=== PATIENT | male | born 1960 | race Caucasian/White ===

== ENCOUNTER → 2018-02-19 | Outpatient (CLI) | payer MEDICARE ==
[~2018-02-19] MED LIST: ASPI-875 PO; CATHETER FLUSH 10 ML SYR IV PRN; GABA-488 PO; HYDR-3720 PO; IOHEXOL 350 MG/ML 100 ML (OMNIPAQUE 350) VIAL IV ONE; MTP25TSR PO; NS 250 ML (IVPB) BAG IV ONE; NTR.4SL SL; PRAV20TA PO
[2018-02-19 09:30] LABS: BUN/CREATININE RATIO 21; CREATININE SERUM 0.84 MG/DL (0.60-1.30); GFR ESTIMATED > 60
--- NOTE | 2018-02-19 10:34 | Diagnostic Imaging Report ---
PROCEDURE: CT chest with contrast only. TECHNIQUE: Multiple contiguous axial images were obtained through the chest after administration of intravenous contrast. INDICATION: Chest pain. Patient has history of lung collapse on the left one year ago. No prior studies are available for comparison. FINDINGS: No axillary lymphadenopathy is detected. No definite hilar or mediastinal adenopathy is seen. No pericardial or pleural fluid is detected. Significant bullous emphysematous changes are identified in the upper lobes. There appears to be postsurgical changes with suture in the left upper chest. There is also a hyperdense mass located immediately anterior to the ascending aorta and main pulmonary artery measuring 2.7 x 1.8 cm. This appears to be a calcification either arising from the pleura or perhaps mediastinum. This appears benign. No infiltrates are seen. No recurrent pneumothorax is identified. Upper abdomen is unremarkable. IMPRESSION: Bullous emphysematous changes and postsurgical changes in the left chest, as described. No recurrent pneumothorax is seen. No acute feature is identified. Dictated by: Dictated on workstation # [id number]
== END ==
LOC: RAD 08:50
PROVIDERS: ATTEND Surgery
DX: J43.9 Emphysema, unspecified (principal); Z98.890 Other specified postprocedural states; Z87.09 Personal history of other diseases of the respiratory system
CPT/HCPCS: 36415; 71260; 82565; 84520

== ENCOUNTER → 2018-10-14 | Outpatient (CLI) | payer MEDICARE ==
[~2018-10-14] MED LIST changes: +ASPIRIN 325 MG (5 GR) TABLET ONE; -CATHETER FLUSH 10 ML SYR IV PRN; +EPTIFIBATIDE BOLUS 10 ML IV ONE; +HEParin (CATH LAB) 2,000 ML IV ONE; +HEParin 1000 UNIT/ML (10ML VIAL) FOR BOLUS ONE; -IOHEXOL 350 MG/ML 100 ML (OMNIPAQUE 350) VIAL IV ONE; +LIDOCAINE 1% INJ 20 ML 20 ML VIAL ONE; +MIDAZOLAM 5 MG/5 ML (VERSED) VIAL ONE; +NITRO DRIP 25000 MCG/D5W 250 ML IV ONE; -NS 250 ML (IVPB) BAG IV ONE; +NS IV 1000 ML 0 ML ONE; +TICAGRELOR 90 MG TABLET (BRILINTA) PO ONE; +fentaNYL INJECTION 100 MCG/2 ML AMP ONE
[2018-10-14] MEDS: BARIUM SUSPENSION 60% (LIQUID EZ PAQUE) 240 ML DOSE PO ONE (08:54)
[2018-10-14] MEDS: BARIUM SUSPENSION 105% (LIQUID POLIBAR PLUS) 240 ML/DOSE PO ONE (08:54)
--- NOTE | 2018-10-14 10:19 | Diagnostic Imaging Report ---
INDICATION: Reflux and dysphasia. TECHNIQUE: Patient ingested effervescent crystals as well as thin and thick barium and imaging of the esophagus was performed. 1 minute and 45 seconds of fluoroscopy was utilized. FINDINGS: Preliminary radiograph demonstrates postsurgical changes in the left upper lobe. Post ingestion images demonstrate the esophagus to have a smooth contour. No mass or stricture is identified. No gastroesophageal reflux or hiatal hernia is demonstrated. There is prompt emptying into the stomach which is unremarkable. IMPRESSION: Unremarkable esophagram. Dictated by: Dictated on workstation # [id number]
== END ==
LOC: RAD 08:22
PROVIDERS: ATTEND Nurse Practitioner Family
DX: K21.9 Gastro-esophageal reflux disease without esophagitis (principal); R13.10 Dysphagia, unspecified
CPT/HCPCS: 74220

== ENCOUNTER 2018-11-01 06:12 | Outpatient (CLI) | payer MEDICARE ==
[~2018-11-01] VITALS: Ht 175.3 cm; Wt 52.2 kg
[~2018-11-01 06:12] MED LIST changes: -ASPIRIN 325 MG (5 GR) TABLET ONE; -EPTIFIBATIDE BOLUS 10 ML IV ONE; -HEParin (CATH LAB) 2,000 ML IV ONE; -HEParin 1000 UNIT/ML (10ML VIAL) FOR BOLUS ONE; -LIDOCAINE 1% INJ 20 ML 20 ML VIAL ONE; -MIDAZOLAM 5 MG/5 ML (VERSED) VIAL ONE; -NITRO DRIP 25000 MCG/D5W 250 ML IV ONE; -NS IV 1000 ML 0 ML ONE; -TICAGRELOR 90 MG TABLET (BRILINTA) PO ONE; -fentaNYL INJECTION 100 MCG/2 ML AMP ONE
[2018-11-01] MEDS ORDERED: AZIT500T PO (14:10)
[2018-11-01] MEDS ORDERED: ACHD5005 PO (14:10)
== END 2018-11-01 14:24 | disposition home or self-care (01) ==
LOC: PREOP 06:12
PROVIDERS: ATTEND Surgery
DX: Z01.818 Encounter for other preprocedural examination (principal)

== ENCOUNTER 2018-11-04 08:03 | Day surgery (SDC) | payer MEDICARE ==
[~2018-11-04] VITALS: Ht 175.3 cm; Wt 52.6 kg
[~2018-11-04 08:03] MED LIST changes: +ACHD5005 PO; +AZIT500T PO
[2018-11-04] MEDS ORDERED: BUP/EPI 0.5% 1:200,000 (SENSORCAINE) 30 ML VIAL ONE (08:11)
[2018-11-04 08:26] VITALS: BP 96/79
--- NOTE | 2018-11-04 08:29 | Progress Note-Pre Operative ---
Pre-Operative Progress Note H&P Reviewed The H&P was reviewed, patient examined and no changes noted. Date Seen by Provider: Nov 04, 2018 Time Seen by Provider: 08:20 Date H&P Reviewed: Nov 04, 2018 Time H&P Reviewed: 08:25 Pre-Operative Diagnosis: Symptomatic ventral abdominal incisional hernia, dysphagia GINNY LAN APRN Nov 04, 2018 08:29
[2018-11-04] MEDS ORDERED: HYDROcodone/APAP 5 MG/325 MG (LORTAB) TAB PO ONE (08:30)
[2018-11-04] MEDS ORDERED: ceFAZolin INJECTION 1,000 MG in NS (IVPB) 50 ML IV ONE (08:30)
[2018-11-04] MEDS ORDERED: morphine INJ 10 MG/ML 1ML (SYR OR VIAL) IVP PRN (08:30)
[2018-11-04] MEDS ORDERED: ACETAMINOPHEN 325 MG TABLET PO PRN (08:30)
[2018-11-04] MEDS ORDERED: ONDANSETRON 4 MG/2 ML (SDV) Z0FRAN IVP PRN ×2 (08:30→11:00)
[2018-11-04] MEDS ORDERED: HYDR-3816 PO ×2 (08:32)
--- NOTE | 2018-11-04 08:34 | Discharge Inst-Surgical ---
D/C Lap Instructions-KIDO New, Converted, or Re-Newed RX: RX on Chart Follow Up Appt in 2 weeks Activity as tolerated No driving for 24 hours No driving while on pain medications Incentive Spirometry use every 2 hours while awake Regular Diet Avoid Alcohol, Caffeine, Spicy, [place] and Acid foods. Symptoms to Report: Fever over 101 degree F, Nausea/Vomiting Infection Signs and Symptoms to report: Increased redness, Foul odor of wound, Increased drainage Bathing instructions: May shower Operative Area Clean/Dry; Keep incision clean/dry If any problems/questions: Contact your physician or go to Emergency Room GINNY LAN APRN Nov 04, 2018 08:34
[2018-11-04] MEDS ORDERED: FAMOTIDINE 20MG/2ML IV (PEPCID) ONE (08:41)
[2018-11-04] MEDS: LACTATED RINGERS 1,000 ML IV PRN ×2 (08:42→10:00)
[2018-11-04] MEDS ORDERED: proPOfol 200 MG/20 ML (DIPRIVAN) VIAL IV ONE ×2 (08:44→10:00)
[2018-11-04] MEDS ORDERED: ROCURONIUM 10 MG/ML 5 ML SYRINGE IV ONE (08:44)
[2018-11-04] MEDS ORDERED: ONDANSETRON 4 MG/2 ML (SDV) Z0FRAN ONE (08:44)
[2018-11-04] MEDS ORDERED: MIDAZOLAM 2 MG/2 ML (VERSED) VIAL ONE (08:44)
[2018-11-04] MEDS ORDERED: fentaNYL INJECTION 100 MCG/2 ML AMP ONE ×2 (08:44→10:26)
[2018-11-04] MEDS ORDERED: LIDOCAINE PF 2% 5 ML (XYLOCAINE) VIAL ONE (08:44)
[2018-11-04] MEDS ORDERED: DEXAMETHASONE 10 MG/ML (DECADRON) 1 ML VIAL ONE (08:50)
[2018-11-04] MEDS ORDERED: SEVOFLURANE (ULTANE) 15 ML INHAL SOLN ONE ×7 (08:50→10:59)
[2018-11-04] MEDS ORDERED: FAMOTIDINE 20MG/2ML IV (PEPCID) IVP ONE (09:00)
[2018-11-04] MEDS ORDERED: ESMOLOL 100 MG/10 ML (BREVIBLOC) VIAL ONE (09:47)
[2018-11-04] MEDS ORDERED: PHENYLEPHRINE 100 MCG/ML 10 ML (ANESTHESIA) SYR ONE (10:07)
--- NOTE | 2018-11-04 10:16 | Progress Note-Post Operative ---
Post-Operative Progess Note Surgeon (s)/Social Media Assistant (s) Surgeon AFSHIN KHAN MD Social Media Assistant: Alex Davey DIRECTOR OF MANUFACTURING Pre-Operative Diagnosis Symptomatic ventral abdominal incisional hernia, dysphagia Post-Operative Diagnosis Incisional hernia, Reflux esophagitis grade II, achalasia, mild gastritis, small hiatal hernia (1 cm) Procedure & Operative Findings Date of Procedure 11/04/18 Procedure Performed/Findings Open Incisional hernia repair with mesh and EGD with biopsy and balloon dilation Anesthesia Type GET Estimated Blood Loss Estimated blood loss (mL): min Specimens/Packing Specimens Removed 1. Hernia sac 2. Antrum bx 3. GE Junction bx AFSHIN KHAN MD Nov 04, 2018 10:16
[2018-11-04] MEDS ORDERED: NEOSTIGMINE 1 MG/ML 5 ML SYRINGE ONE (10:39)
[2018-11-04] MEDS ORDERED: GLYCOPYRROLATE 0.2 MG/ML (ROBINUL) 2 ML VIAL ONE (10:39)
[2018-11-04] MEDS ORDERED: morphine INJ 10 MG/ML 1ML (SYR OR VIAL) IVP ONE (11:00)
[2018-11-04 11:40] VITALS: BP 115/70
[2018-11-04] MEDS ORDERED: HYDROcodone/APAP 5 MG/325 MG (LORTAB) TAB ONE (11:41)
--- NOTE | 2018-11-04 12:08 | Anesthesia-General Post-Op ---
General Patient Condition Mental Status/LOC: Same as Preop Cardiovascular: Satisfactory Nausea/Vomiting: Absent Respiratory: Satisfactory Pain: Controlled Complications: Absent Post Op Complications Complications None Follow Up Care/Instructions Patient Instructions None needed. Anesthesia/Patient Condition Patient Condition Patient is doing well, no complaints, stable vital signs, no apparent adverse anesthesia problems. No complications reported per nursing. D/C home per [facility] [place] Criteria: Yes SOL VAZQUEZ CRNA Nov 04, 2018 12:08
[2018-11-04 12:10] VITALS: BP 106/71
[2018-11-04 12:40] VITALS: BP 108/64
[2018-11-04 13:07] VITALS: BP 108/64
--- NOTE | 2018-11-04 20:43 | OPERATIVE REPORT ---
DATE OF SERVICE: 11/04/2018 ATTENDING PRIMARY CARE PHYSICIAN: Dillan Fatima DO PREOPERATIVE DIAGNOSES: Symptomatic ventral abdominal incisional hernia and dysphagia. POSTOPERATIVE DIAGNOSES: Small ventral abdominal incisional hernia from previous trocar site in the epigastric region. Reflux esophagitis stage II with increased lower esophageal sphincter tone for greater than several minutes consistent with an achalasia, small hiatal hernia approximately 1 cm in size, mild gastritis. PROCEDURE: Open ventral abdominal incisional hernia repair with mesh. EGD with biopsy and balloon dilatation. SURGEON: Afshin Khan MD GYRO COMPASS TESTER: Alex Davey APRN. ANESTHESIA: General endotracheal. ESTIMATED BLOOD LOSS: Minimal. FINDINGS: Small ventral abdominal incisional hernia with a fascial defect approximately 1.5 cm in size. Reflux esophagitis grade II, suspected achalasia, small hiatal hernia approximately 1 cm in size, mild gastritis. No distal obstructions. DISPOSITION: The patient tolerated the procedure well. INDICATIONS: The patient is a 57-year-old male known to us. We had seen him before for symptomatic spontaneous left pneumothorax and a chest tube was placed. He was then referred to thoracic surgery and underwent a left video-assisted thoracoscopy and bleb resection and pleurodesis. He has had issues with heartburn and regurgitation for some amount of time and he did undergo an EGD and colonoscopy in 2016 where a hiatal hernia was identified. He also has a ventral abdominal incisional hernia approximately 2 cm in size, which was reducible. He was seen later and he reports that the incisional hernias become more symptomatic and has grown larger in size. He also reports dysphagia with recurrent episodes of reflux and regurgitations even with small amounts of food. DESCRIPTION OF PROCEDURE: The patient was brought to the operating room, laid supine on the table. After adequate IV pain and sedative medications and general endotracheal intubation, the abdomen was prepped and draped in standard surgical fashion. A 0.5% Marcaine with epinephrine was used to size the overlying skin in the left upper abdominal quadrant and a small transverse skin incision made using a #15 blade. An 0 silk suture was applied to the medial aspect of the incision for retraction and a Veress needle inserted with a low opening pressure of 0 mmHg. After the abdomen was prepped and draped in standard surgical fashion, 0.5% Marcaine with epinephrine was used to anesthetize the overlying skin in the epigastric region over the hernia. A transverse skin incision was then made using a #15 blade. The subcutaneous tissue was then opened using electrocautery and the hernia sac identified. The entire hernia sac was then dissected out using blunt dissection as well as electrocautery. We proceeded with dissection to the fascial base, which was approximately 1.5 cm in size. The hernia sac was then opened with only omentum and falciform ligament within the hernia sac. A 6 cm coated polypropylene mesh was then placed into the defect and sutured to the fascia using interrupted 0 Prolene sutures. Good hemostasis was observed. The subcutaneous tissue was then reapproximated using 3-0 Vicryl interrupted sutures. Skin was closed using 4-0 Monocryl running subcuticular suture. Wound was then cleaned and covered with Dermabond. The patient tolerated this portion of procedure well. We will instruct him to proceed with no heavy lifting or exertion for the next two weeks and then slowly increase lifting and exertion and then he will have no restrictions at approximately 6 weeks. Under the same anesthesia, we then proceeded with the EGD. The endoscope was placed in the mouth, visualizing the pharynx and hypopharyngeal region. Vocal cords, epiglottis and vallecula identified and appeared to be normal. The endoscope was then gently intubated at the esophageal opening and esophagus insufflated. The endoscope was then advanced to the first, second and third portions of the esophagus at the level of the GE junction, a reflux esophagitis stage II identified. There was also increased lower esophageal sphincter tone for greater than 120 to 180 seconds, which may indicate some form of achalasia and esophageal dysmotility. With gentle pressure, we were able to go through this region. The endoscope was then advanced and retroflexed visualizing the small hiatal hernia approximately 1 cm in size. There was some mild severity gastritis. There were no formal ulcerations, polyps or any neoplasms. A biopsy was taken of the antrum to rule out H. pylori with forceps with visualization of good hemostasis. The endoscope was then advanced to the pylorus into the first and second portions of duodenum, which appeared normal with no distal obstructions. The endoscope was then slowly withdrawn. We then proceeded with dilatation. The balloon was placed in the stomach and pulled back to the area of the achalasia. We then first proceeded to 2 atmospheres of pressure, 18 mm in circumferential diameter with no resistance. We then proceeded to 4 atmospheres of pressure or 19 mm with mild resistance. We then proceeded to 6 atmospheres of pressure, 20 mm in diameter with mild to moderate resistance and left this in place for approximately 60 seconds. The balloon was then decompressed and removed with visualization of good hemostasis as well as no mucosal tears. The endoscope was then slowly withdrawn taking a second look and suctioning of residual air with no additional findings. The patient tolerated the procedure well. We will start IV normal pain medication as well as a clear liquid diet. Once he is tolerating clears, has good pain control with oral pain medications, ambulating well, we will discharge him home. For potential achalasia, we will recommend graded dilatation. So, when he becomes symptomatic, we will proceed with another dilatation as needed. Job ID: [id number] DocumentID: [id number] Dictated Date: 11/04/2018 10:41:49 Senior Manager Creative Services Date: 11/04/2018 20:42:49 Dictated By: AFSHIN KHAN MD MTDD
== END 2018-11-04 13:07 | disposition home or self-care (01) ==
LOC: SDC 08:03
PROVIDERS: ATTEND Surgery
DX: K43.2 Incisional hernia without obstruction or gangrene (principal); K21.0 Gastro-esophageal reflux disease with esophagitis; K44.9 Diaphragmatic hernia without obstruction or gangrene; K29.70 Gastritis, unspecified, without bleeding; J44.9 Chronic obstructive pulmonary disease, unspecified; F17.210 Nicotine dependence, cigarettes, uncomplicated; Z79.899 Other long term (current) drug therapy
CPT/HCPCS: 87081

== ENCOUNTER → 2018-11-05 | Outpatient (CLI) | payer MEDICARE ==
[~2018-11-05] MED LIST changes: +HYDR-3816 PO
--- NOTE | 2018-11-05 13:46 | Diagnostic Imaging Report ---
Indication: Right lower chest discomfort. Time of exam: 12:42 PM No prior studies are available for comparison. The heart size is normal. The lungs do show some hyperinflation consistent with COPD. No infiltrates are seen. No effusion or pneumothorax is identified. Impression: COPD. No acute feature is detected. Dictated by: Dictated on workstation # [id number]
== END ==
LOC: RAD 12:12
PROVIDERS: ATTEND Surgery
DX: J44.9 Chronic obstructive pulmonary disease, unspecified (principal); Z98.890 Other specified postprocedural states
CPT/HCPCS: 71046

== ENCOUNTER 2019-08-02 11:15 | Outpatient (CLI) | payer MEDICARE ==
[~2019-08-02] VITALS: Ht 175 cm; Wt 54.0 kg
[~2019-08-02 11:15] MED LIST changes: +PANT40TA3 PO; +SIME80TA16 PO; +SUCR1TAB PO; +TRAM50TA2 PO
== END 2019-08-02 11:41 | disposition home or self-care (01) ==
LOC: PREOP 11:15
PROVIDERS: ATTEND Surgery
DX: Z01.818 Encounter for other preprocedural examination (principal)

== ENCOUNTER 2019-08-03 11:51 | Day surgery (SDC) | payer MEDICARE ==
[2019-08-03] VITALS (15 sets, daily range): BP systolic 100–157; BP diastolic 57–89
[~2019-08-03] VITALS: Ht 175 cm; Wt 54.0 kg
[2019-08-03] MEDS ORDERED: NS IV 500 ML 500 ML IV PRN (12:07)
[2019-08-03] MEDS ORDERED: NS IV 500 ML 500 ML ONE (12:13)
[2019-08-03] MEDS ORDERED: HURRICAINE EXT TUBE (BENZOCAINE) XX PRN (12:15)
[2019-08-03] MEDS ORDERED: fentaNYL INJECTION 100 MCG/2 ML AMP IVP ONE (12:15)
--- NOTE | 2019-08-03 12:19 | Conscious Sedation/ASA ---
Conscious Sedation Pre-Proced Time 12:00 ASA Score 2 For ASA 3 and 4: Consider anesthesia and medical clearance. Also, for patients with a history of failed moderate sedation consider anesthesia. Airway Lungs Heart ASA score ASA 1: a normal healthy patient ASA 2: a patient with a mild systemic disease (mid diabetes, controlled hypertension, obesity ASA 3: a patient with a severe systemic disease that limits activity (angina, COPD, prior Myocardial infarction) ASA 4: a patient with an incapacitating disease that is a constant threat to life (CHF, renal failure) ASA 5: a moribund patient not expected to survive 24 hrs. (ruptured aneurysm) ASA 6: a declared brain- patient whose organs are being harvested. For emergent operations, add the letter E after the classification Mallampati Classification Grade 2 Sedation Plan Analgesia, Amnesia, Plan communicated to team members, Discussed options with patient/fam, Discussed risks with patient/fam The patient is an appropriate candidate to undergo the planned procedure, sedation, and anesthesia. The patient immediately re-assessed prior to indication. AFSHIN KHAN MD Aug 03, 2019 12:19
--- NOTE | 2019-08-03 12:19 | Progress Note-Pre Operative ---
Pre-Operative Progress Note H&P Reviewed The H&P was reviewed, patient examined and no changes noted. Date Seen by Provider: Aug 03, 2019 Time Seen by Provider: 12:00 Date H&P Reviewed: Aug 03, 2019 Time H&P Reviewed: 12:00 Pre-Operative Diagnosis: dysphagia AFSHIN KHAN MD Aug 03, 2019 12:19
--- NOTE | 2019-08-03 12:21 | Discharge Inst-Surgical ---
D/C Lap Instructions-BILL Follow Up Appt in 2 weeks Activity as tolerated High Fiber Diet 25g or more per day Avoid Alcohol, Caffeine, Spicy [place] and Acid foods. Drink 64 fluid oz or more of fluids per day. Symptoms to Report: Fever over 101 degree F, Nausea/Vomiting If any problems/questions: Contact your physician or go to Emergency Room AFSHIN KHAN MD Aug 03, 2019 12:21
[2019-08-03] MEDS ORDERED: HYDROcodone/APAP 5 MG/325 MG (LORTAB) TAB PO PRN (12:30)
[2019-08-03] MEDS ORDERED: morphine INJ 10 MG/ML 1ML (SYR OR VIAL) IVP PRN ×2 (12:30)
[2019-08-03] MEDS ORDERED: ACETAMINOPHEN 325 MG TABLET PO PRN (12:30)
[2019-08-03] MEDS ORDERED: ONDANSETRON 4 MG/2 ML (SDV) Z0FRAN IVP PRN (12:30)
[2019-08-03] MEDS ORDERED: MIDAZOLAM 5 MG/5 ML (VERSED) VIAL ONE (13:34)
[2019-08-03] MEDS ORDERED: LIDOCAINE JELLY 2% 6 ML SYRINGE ONE (13:34)
[2019-08-03] MEDS ORDERED: HURRICAINE EXT TUBE (BENZOCAINE) ONE (13:34)
[2019-08-03] MEDS ORDERED: fentaNYL INJECTION 100 MCG/2 ML AMP ONE (13:34)
[2019-08-03] MEDS: MIDAZOLAM 5 MG/5 ML (VERSED) VIAL IV PRN ×4 (13:35→13:46)
[2019-08-03] MEDS ORDERED: MIDAZOLAM 2 MG/2 ML (VERSED) VIAL ONE (13:46)
--- NOTE | 2019-08-03 14:18 | Progress Note-Post Operative ---
Post-Operative Progess Note Surgeon (s)/Utilization Specialist (s) Surgeon AFSHIN KHAN MD Utilization Specialist: none Pre-Operative Diagnosis dysphagia, achalasia Post-Operative Diagnosis same Procedure & Operative Findings Date of Procedure 08/03/19 Procedure Performed/Findings EGD with balloon dilatation. Anesthesia Type cs Estimated Blood Loss Estimated blood loss (mL): minimal Specimens/Packing Specimens Removed none AFSHIN KHAN MD Aug 03, 2019 14:18
--- NOTE | 2019-08-03 20:15 | OPERATIVE REPORT ---
DATE OF SERVICE: 08/03/2019 ATTENDING PRIMARY CARE PHYSICIAN: Dillan Fatima DO PREOPERATIVE DIAGNOSIS: Achalasia with recurrent dysphagia. POSTOPERATIVE DIAGNOSIS: Achalasia with recurrent dysphagia. PROCEDURE: EGD with balloon dilatation. SURGEON: Afshin Khan MD ANESTHESIA: Conscious sedation. ESTIMATED BLOOD LOSS: Minimal. FINDINGS: Hypertonic lower esophageal sphincter, reflux esophagitis stage II, moderate gastritis. No distal obstructions. DISPOSITION: The patient tolerated the procedure well. INDICATIONS: The patient is a 58-year-old male known to us. We had seen him before for symptomatic left pneumothorax and the chest tube was placed and then he was eventually referred to thoracic surgery for video-assisted thoracoscopy, bleb resection and pleurodesis. He has had issues with gastroesophageal reflux disease as well as dysphagia for years. We had done an EGD and found to have what appeared to be achalasia and this was confirmed on esophageal manometry study. He has had recurrence of dysphagia and we will proceed again with an EGD and balloon dilatation. DESCRIPTION OF PROCEDURE: The patient was brought to the endoscopy suite, laid in the left lateral decubitus position. After adequate IV pain and sedative medications and conscious sedation anesthesia, the mouthpiece was applied. The endoscope was placed in the mouth, visualizing the pharynx and hypopharyngeal region. Vocal cords, epiglottis and vallecula identified and appeared to be normal. Endoscope was then gently intubated into the esophageal opening and esophagus insufflated. The endoscope was then advanced through the 1st, 2nd and 3rd portion of the esophagus at the level of GE junction, there appeared to be hypertonic lower esophageal sphincter; however, with gentle pressure and insufflation, we were able to get through this area without any difficulty. The endoscope was then retroflexed visualizing again a small hiatal hernia approximately 1 to 1.5 cm in size. There was a moderate severity gastritis. No formal ulcerations, polyps, or any neoplasms. Pylorus and duodenum appeared normal with no distal obstructions. We then proceeded with balloon dilatation of the lower esophageal sphincter. The balloon was placed in the stomach and pulled back to the area of stricture. We first proceeded to 2 atmospheres of pressure with minimal resistance. We then proceeded to 4 atmospheres of pressure or 19 mm in diameter with moderate resistance and left this in place for approximately 60 seconds. The balloon was then desufflated and removed. Good hemostasis was observed as well as no mucosal tears. The endoscope was then slowly withdrawn while taking a second look and suctioning residual air with no additional findings. The patient tolerated the procedure well. We will recommend continued medical therapy with the necessary lifestyle and diet accommodation including small and more frequent meals, avoidance of eating at night as well as head elevation while lying supine. He also needs to proceed with smoking cessation as well as avoidance of caffeinated beverages, spicy, greasy and acidic foods. We will continue with conservative therapy with balloon dilatations on a p.r.n. basis. Job ID: [id number] DocumentID: [id number] Dictated Date: 08/03/2019 14:02:27 Pensionholder Information Clerk Date: 08/03/2019 20:14:57 Dictated By: AFSHIN KHAN MD MTDD
== END 2019-08-03 15:10 | disposition home or self-care (01) ==
LOC: ENDO 11:51
PROVIDERS: ATTEND Surgery
DX: K22.0 Achalasia of cardia (principal); K55.8 Other vascular disorders of intestine; K21.0 Gastro-esophageal reflux disease with esophagitis; K29.70 Gastritis, unspecified, without bleeding; K44.9 Diaphragmatic hernia without obstruction or gangrene; Z79.891 Long term (current) use of opiate analgesic; Z87.891 Personal history of nicotine dependence; Z79.899 Other long term (current) drug therapy; Z82.3 Family history of stroke; Z82.49 Family history of ischemic heart disease and other diseases of the circulatory system; Z80.0 Family history of malignant neoplasm of digestive organs; Z80.1 Family history of malignant neoplasm of trachea, bronchus and lung

== ENCOUNTER 2021-02-07 05:40 | Outpatient (CLI) | payer MEDICARE ==
[~2021-02-07] VITALS: Ht 175.3 cm; Wt 54.0 kg
[~2021-02-07 05:40] MED LIST changes: +HYDR-34 PO; -HYDR-3816 PO; -PANT40TA3 PO; +PANT40TA52 PO; -TRAM50TA2 PO; +TRM50T PO
[2021-02-07] MEDS ORDERED: BUDE10.2 IH (10:44)
[2021-02-07] MEDS ORDERED: ALPR0.25 PO (10:44)
== END 2021-02-07 11:09 | disposition home or self-care (01) ==
LOC: PREOP 05:40
PROVIDERS: ATTEND Surgery
DX: Z01.818 Encounter for other preprocedural examination (principal)

== ENCOUNTER → 2021-02-11 | Outpatient (CLI) | payer MEDICARE ==
[~2021-02-11] MED LIST changes: +ALPR0.25 PO; +BUDE10.2 IH; +PANT40TA2 PO
== END ==
LOC: LAB FS 10:10
PROVIDERS: ATTEND Surgery
DX: Z01.812 Encounter for preprocedural laboratory examination (principal); R13.10 Dysphagia, unspecified; Z20.822 Contact with and (suspected) exposure to COVID-19; Z80.0 Family history of malignant neoplasm of digestive organs
CPT/HCPCS: 87635

== ENCOUNTER 2021-02-13 11:34 | Day surgery (SDC) | payer MEDICARE, OTHER ==
--- NOTE | 2021-02-07 08:01 | HISTORY AND PHYSICAL ---
DATE OF SERVICE: DATE OF ADMISSION: 02/13/2021. ADMITTING PRIMARY CARE PHYSICIAN: Dr. Dillan Fatima. HISTORY OF PRESENT ILLNESS: The patient is a 60-year-old male known to us. We had initially seen him for symptomatic left pneumothorax and had a chest tube placed and was eventually referred to thoracic surgery for video-assisted thoracoscopy for a bleb resection and pleurodesis. He had had issues with dysphagia and gastroesophageal reflux disease for years and we had done an EGD and found to have what appeared to be an achalasia, which was confirmed by esophageal manometry. He chose to proceed with a graded dilatation and the last one was done 08/03/2019, where he was dilated to 19 mm. He once again reports a recurrence of dysphagia. He also is in need of a colonoscopy. His last colonoscopy was five years ago and does remember any abnormalities. He does have a family history of colon cancer with his father being diagnosed with the disease. He also does report crampy abdominal pain that moves, which likely indicates an irritable bowel syndrome. PAST MEDICAL HISTORY: COPD, Lyme's disease, and achalasia. PAST SURGICAL HISTORY: Laparoscopic cholecystectomy in 2011, left chest tube placement, followed by video-assisted thoracoscopy and blebectomy and pleurodesis 10/2016, incisional hernia repair with mesh in 2018, EGD and balloon dilatation. ALLERGIES: No known drug allergies. MEDICATIONS: Tramadol p.r.n., Xanax p.r.n., vitamin D daily, hydrocodone daily, and simethicone p.r.n. SOCIAL HISTORY: Previous smoker, 40 pack years, quit 10/2016. Negative alcohol. FAMILY HISTORY: Mother, stroke with her first one in her 30s, hypertension. Father, colon cancer diagnosed in his 50s, lung cancer diagnosed in his 60s, and hypertension. REVIEW OF SYSTEMS: A slightly thin-appearing male in no acute distress. He is not experiencing any shortness of breath or difficulty breathing. No chest pain, palpitations, diaphoresis. No nausea, vomiting with dysphagia usually for specific types of solids including lean meats as well as breads. No hematemesis, no coffee-ground emesis. History of constipation with crampy abdominal pain. No red blood per rectum, no dark tarry stools. No fever, chills, no recent inadvertent weight loss. All other review of systems negative. PHYSICAL EXAMINATION: VITAL SIGNS: Blood pressure 126/76, current weight 110.3 pounds at 5 feet 9 inches. CHEST: Clear. Good breath sounds bilaterally. HEART: Regular, no murmurs. EXTREMITIES: No lower extremity edema, negative Homans sign. HEENT: No scleral icterus. NECK: No cervical lymphadenopathy. ABDOMEN: Soft, nontender, and nondistended. No hernias. SKIN: Warm, dry. ASSESSMENT AND PLAN: A 60-year-old male with symptomatic achalasia and we will proceed with an EGD as well as a balloon dilatation as well as biopsies as appropriate. He also does have a family history of colon cancer and a personal history of polyps, also having a crampy abdominal pain and we will proceed with a screening colonoscopy. Job ID: [id number] DocumentID: [id number] Dictated Date: 02/05/2021 16:55:02 Freezer Operator Date: 02/05/2021 17:17:22 Dictated By: AFSHIN KHAN MD MTDD
[2021-02-13] VITALS (7 sets, daily range): BP systolic 97–135; BP diastolic 66–87
[~2021-02-13] VITALS: Ht 175 cm; Wt 54.0 kg
[~2021-02-13 11:34] MED LIST changes: -PANT40TA2 PO
[2021-02-13] MEDS ORDERED: LACTATED RINGERS 1,000 ML IV ONE (11:40)
[2021-02-13] MEDS ORDERED: LACTATED RINGERS 1,000 ML IV STA (11:43)
--- NOTE | 2021-02-13 11:44 | Progress Note-Pre Operative ---
Pre-Operative Progress Note H&P Reviewed The H&P was reviewed, patient examined and no changes noted. Date Seen by Provider: Feb 13, 2021 Time Seen by Provider: 11:30 Date H&P Reviewed: Feb 13, 2021 Time H&P Reviewed: 11:30 Pre-Operative Diagnosis: GERD, dysphagia AFSHIN KHAN MD Feb 13, 2021 11:44
[2021-02-13] MEDS ORDERED: ACETAMINOPHEN 325 MG TABLET PO PRN (11:45)
[2021-02-13] MEDS ORDERED: PANT40TA2 PO (11:45)
[2021-02-13] MEDS ORDERED: HURRICAINE EXT TUBE (BENZOCAINE) XX PRN (11:45)
[2021-02-13] MEDS ORDERED: LIDOCAINE JELLY 2% 6 ML SYRINGE MM PRN (11:45)
[2021-02-13] MEDS ORDERED: morphine INJ 10 MG/ML 1ML (SYR OR VIAL) IVP PRN ×2 (11:45)
[2021-02-13] MEDS ORDERED: HYDROcodone/APAP 5 MG/325 MG (LORTAB) TAB PO PRN (11:45)
[2021-02-13] MEDS ORDERED: ONDANSETRON 4 MG/2 ML (SDV) Z0FRAN IVP PRN (11:45)
--- NOTE | 2021-02-13 11:45 | Discharge Inst-Surgical ---
D/C Lap Instructions-KIDO New, Converted, or Re-Newed RX: RX on Chart Follow Up Activity as tolerated High Fiber Diet 25g or more per day Avoid Alcohol, Caffeine, Spicy [place] and Acid foods. Drink 64 fluid oz or more of fluids per day. Symptoms to Report: Fever over 101 degree F, Nausea/Vomiting If any problems/questions: Contact your physician or go to Emergency Room AFSHIN KHAN MD Feb 13, 2021 11:45
[2021-02-13] MEDS ORDERED: RT-ALBUTEROL SULF 2.5 MG/3 ML PRE-MIX VIAL INH ONE (12:15)
[2021-02-13] MEDS ORDERED: RT-ALBUTEROL SULF 2.5 MG/3 ML PRE-MIX VIAL ONE (12:51)
[2021-02-13] MEDS ORDERED: PROPOFOL INJECTION 50 ML IV ONE ×2 (13:36→14:20)
[2021-02-13] MEDS ORDERED: MIDAZOLAM 2 MG/2 ML (VERSED) VIAL ONE (13:36)
[2021-02-13] MEDS ORDERED: LIDOCAINE JELLY 2% 6 ML SYRINGE ONE (14:08)
[2021-02-13] MEDS ORDERED: HURRICAINE EXT TUBE (BENZOCAINE) ONE (14:09)
--- NOTE | 2021-02-13 15:13 | Progress Note-Post Operative ---
Post-Operative Progess Note Surgeon (s)/Airline Captain (s) Surgeon AFSHIN KHAN MD Airline Captain: none Pre-Operative Diagnosis GERD, dysphagia Post-Operative Diagnosis reflux esophagitis(stage 2), achalasia, mild distal esoph stricture, mild gastritis. mild chronic stage 2 ext and int hemorrhoids. Procedure & Operative Findings Date of Procedure 02/13/21 Procedure Performed/Findings EGD with bx and balloon dilatation. colonoscopy. Anesthesia Type mac Estimated Blood Loss Estimated blood loss (mL): minimal Specimens/Packing Specimens Removed ge jxn, antrum AFSHIN KHAN MD Feb 13, 2021 15:13
--- NOTE | 2021-02-13 21:59 | OPERATIVE REPORT ---
DATE OF SERVICE: 02/13/2021 ATTENDING PRIMARY CARE PHYSICIAN: Dr. Dillan Fatima. PREOPERATIVE DIAGNOSES: Recurrent dysphagia with history of achalasia, screening colonoscopy with family history of colon cancer. POSTOPERATIVE DIAGNOSES: Reflux esophagitis stage II, hypertonic distal esophageal sphincter, mild distal esophageal stricture, mild gastritis, mild chronic stage II external and internal hemorrhoids. PROCEDURE: EGD with biopsy and balloon dilatation, colonoscopy. SURGEON: Afshin Musa MD. ANESTHESIA: Monitored anesthesia care. ESTIMATED BLOOD LOSS: Minimal. FINDINGS: Reflux esophagitis stage II, hypertonic distal esophageal sphincter, mild distal esophageal stricture, mild gastritis, mild chronic stage II external and internal hemorrhoids. DISPOSITION: The patient tolerated the procedure well. INDICATIONS: The patient is a 60-year-old male known to us. We had initially seen here for a symptomatic left pneumothorax and had placed a chest tube and eventually referred to thoracic surgery for video-assisted thoracoscopy for bleb resection and pleurodesis. He has had issues with dysphagia and gastroesophageal reflux disease for years. We had done an EGD and was found to have what appeared to be achalasia, which was confirmed by esophageal manometry. He chose to proceed with graded dilatation and the last one done on 08/03/2019 and he was dilated to 19 mm. He once again reports the recurrence of dysphagia. He is also in need of a screening colonoscopy. His last colonoscopy was 5 years ago, and he does not remember any abnormalities. He does have a family history of colon cancer with his father being diagnosed with the disease. DESCRIPTION OF PROCEDURE: The patient was brought to the endoscopy suite, laid in the left lateral decubitus position. After adequate IV pain and sedative medications and monitored anesthesia care, the mouthpiece was applied. The patient was brought to the endoscopy suite, laid in the left lateral decubitus position with head slightly elevated. After adequate IV pain and sedative medications and conscious sedation anesthesia, the mouthpiece was applied. The endoscope was placed in the mouth, visualizing the pharynx and hypopharyngeal region. Vocal cords, epiglottis and vallecula identified and appeared to be normal. The endoscope was then gently intubated into the esophageal opening and esophagus insufflated. The endoscope was then advanced through the first, second and third portion of esophagus at the level of the GE junction, a reflux esophagitis stage II identified. There also appeared to be a hypertonic lower esophageal sphincter consistent with an achalasia. There was also a fibrous rind at the GE junction consistent with a mild distal esophageal stricture. A biopsy was taken of the GE junction with forceps with visualization of good hemostasis. The endoscope was then advanced in the stomach and endoscope retroflexed visualizing no significant sized hiatal hernia. There was a mild gastritis. No formal ulcerations, polyps, or any neoplasms. A biopsy was taken of the antrum to rule out H. pylori with visualization of good hemostasis. The endoscope was then advanced through the pylorus and the first and second portion of the duodenum, which appeared normal with no distal obstructions. We then proceeded with balloon dilatation of the stricture and achalasia and the balloon was placed in the stomach and pulled back to the area of the lower esophageal sphincter and GE junction. The balloon was then insufflated to 2 and then 4, then 6 atmospheres of pressure with moderate resistance and left this in place for approximately 60 seconds. The balloon was then desufflated and removed with visualization of good hemostasis as well as no mucosal tears. The endoscope was then slowly withdrawn while taking a second look and suctioning of residual air with no additional findings. We then proceeded with the colonoscopy portion of the procedure and a digital rectal examination was performed, which revealed chronic stage II external and internal hemorrhoids, not actively edematous nor inflamed and no bleeding. Normal sphincter tone was felt and there were no palpable masses. The prostate gland was palpable and appeared normal. The endoscope was then intubated to the anus and rectum gently insufflated. The endoscope was then advanced through the valves of Reed of the rectum with no polyps or any neoplasms identified. The endoscope was then advanced to the sigmoid colon where no diverticulosis identified. We then proceeded through the remainder of the descending, transverse and ascending colon to the cecum. These segments were normal. There were no polyps or any neoplasms identified throughout the colon or rectum. The endoscope was then slowly withdrawn while taking a second look and suctioning of residual air with no additional findings. The patient tolerated the procedure well. We will recommend the necessary lifestyle and diet accommodation including small and more frequent meals, avoidance of eating at night as well as head elevation while lying supine. We will also recommend avoiding caffeinated beverages, spicy, greasy and acidic foods as well as smoking cessation as well. We will also recommend continuation of medical management with a high fiber diet with at least 30 grams of fiber daily as well as significant amounts of water to promote soft stools on a daily basis. If he does have recurrent dysphagia, we will have him follow up for repeat balloon dilatation. Job ID: [id number] DocumentID: [id number] Dictated Date: 02/13/2021 15:02:22 Crew Truck Driver Date: 02/13/2021 21:58:38 Dictated By: AFSHIN MUSA MD
--- NOTE | 2021-02-14 13:22 | Anesthesia-General Post-Op ---
MAC Patient Condition Mental Status/LOC: Same as Preop Cardiovascular: Satisfactory Nausea/Vomiting: Absent Respiratory: Satisfactory Pain: Controlled Complications: Absent Post Op Complications Complications None Follow Up Care/Instructions Patient Instructions None needed. Anesthesiology Discharge Order Discharge Order Patient is doing well, no complaints, stable vital signs, no apparent adverse anesthesia problems. No complications reported per nursing. NEAL ASHLEY CRNA Feb 14, 2021 13:22
== END 2021-02-13 15:35 | disposition home or self-care (01) ==
LOC: ENDO 11:34
PROVIDERS: ATTEND Surgery
DX: Z12.11 Encounter for screening for malignant neoplasm of colon (principal); K21.00 Gastro-esophageal reflux disease with esophagitis, without bleeding; K22.2 Esophageal obstruction; K64.1 Second degree hemorrhoids; K29.70 Gastritis, unspecified, without bleeding; J44.9 Chronic obstructive pulmonary disease, unspecified; F32.9 Major depressive disorder, single episode, unspecified; M19.90 Unspecified osteoarthritis, unspecified site; K21.9 Gastro-esophageal reflux disease without esophagitis; K22.0 Achalasia of cardia; A69.20 Lyme disease, unspecified; Z79.899 Other long term (current) drug therapy; Z87.891 Personal history of nicotine dependence; Z90.49 Acquired absence of other specified parts of digestive tract; Z80.0 Family history of malignant neoplasm of digestive organs
CPT/HCPCS: 88305; 94640

== ENCOUNTER → 2021-12-16 | Outpatient (CLI) | payer MEDICARE ==
[~2021-12-16] MED LIST changes: +PANT40TA2 PO
[2021-12-16 10:19] VITALS: BP 120/87
== END ==
LOC: CARD 10:30
PROVIDERS: ATTEND Internal Medicine Cardiovascular Disease
DX: I11.9 Hypertensive heart disease without heart failure (principal); R07.9 Chest pain, unspecified; I25.10 Atherosclerotic heart disease of native coronary artery without angina pectoris
CPT/HCPCS: 93351

== ENCOUNTER → 2022-10-01 | Outpatient (CLI) | payer MEDICARE ==
--- NOTE | 2022-10-01 16:54 | Diagnostic Imaging Report ---
Indication: Chest pain, prior history of left pneumothorax. PA and lateral chest obtained at 4:45 p.m. and compared to 11/05/2018. Heart and mediastinal silhouette are normal in appearance. There is some biapical scarring with sutures in left apex. There is no pneumothorax or pleural fluid. There is no focal infiltrate. Impression: Biapical scarring with surgical sutures in the left apex. No pneumothorax or pleural fluid or acute abnormality. Dictated by: Dictated on workstation # [id number]
== END ==
LOC: RAD 16:28
PROVIDERS: ATTEND Nurse Practitioner Family
DX: J98.4 Other disorders of lung (principal); Z98.890 Other specified postprocedural states; Z87.09 Personal history of other diseases of the respiratory system
CPT/HCPCS: 71046

== ENCOUNTER → 2023-02-25 | Outpatient (CLI) | payer MEDICARE, OTHER ==
[~2023-02-25] MED LIST changes: +GADOTERATE 0.5 MMOL/ML (CLARISCAN) 15 ML VIAL IV ONE
--- NOTE | 2023-02-25 13:57 | Diagnostic Imaging Report ---
PROCEDURE: MR imaging of the brain with and without contrast. TECHNIQUE: Multiplanar, multisequence MR imaging of the brain was performed with and without contrast. INDICATION: Bilateral hearing loss. COMPARISON: none FINDINGS: No acute ischemia, mass, or hemorrhage. Benign developmental venous anomaly is visualized in the right basal ganglia/thalamus. Otherwise, no abnormal enhancement is seen. Focal and confluent T2 hyperintense signal seen in the periventricular and subcortical white matter. The ventricles, cortical sulci, and basilar cisterns are symmetric and unremarkable. The sellar and suprasellar regions have a normal appearance. The bilateral 7th and 8th cranial nerves have a normal appearance. No evidence of CPA mass. No abnormal enhancement. The bilateral internal auditory canals are symmetric and unremarkable. The inner ear structures have a normal appearance bilaterally. The bilateral Meckel's caves and cavernous sinuses are unremarkable. The brainstem and posterior fossa are unremarkable. Mild mucosal thickening is seen in the paranasal sinuses. The mastoid air cells demonstrate normal signal characteristics. The globes and orbits are symmetric and unremarkable. The scalp and calvarium have a normal appearance. IMPRESSION: 1. No acute ischemia, mass, or hemorrhage. No masslike enhancement. 2. Normal appearance of the bilateral 7th and 8th cranial nerves. No evidence of abnormal enhancement or CPA mass. 3. Benign developmental venous anomaly in the right basal ganglia/thalamus. 4. Chronic microvascular disease in the periventricular and subcortical white matter. Dictated by: Dictated on workstation # [id number]
== END ==
LOC: RAD 13:15
PROVIDERS: ATTEND Otolaryngology Otolaryngology/Facial Plastic Surgery
DX: H90.3 Sensorineural hearing loss, bilateral (principal); R90.82 White matter disease, unspecified
CPT/HCPCS: 70553

== ENCOUNTER → 2023-05-05 | Outpatient (CLI) | payer MEDICARE ==
[~2023-05-05] MED LIST changes: -GADOTERATE 0.5 MMOL/ML (CLARISCAN) 15 ML VIAL IV ONE
--- NOTE | 2023-05-05 17:18 | Diagnostic Imaging Report ---
INDICATION: Bone density screening COMPARISON: None available FINDINGS: AP Spine L1-L4: [BMD (g/cm2): 1.196] [T-Score: -0.4] [Z-Score: 0.8] [BMD Previous: NA] [BMD % Change: NA] LT Hip Neck: [BMD (g/cm2): 0.605] [T-Score: -3.6] [Z-Score: -2.1] LT Hip Total: [BMD (g/cm2):0.725] [T-Score:-2.6] [Z-Score: -1.6] [BMD Previous: NA] [BMD % Change: NA] RT Hip Neck: [BMD (g/cm2):0.597] [T-Score:-3.6] [Z-Score:-2.2] RT Hip Total: [BMD (g/cm2):0.694] [T-score:-2.8] [Z-Score:-1.9] [BMD Previous:NA] [BMD % Change:NA] *Indicates significant change from prior examination based on 95% confidence level. World Health Organization criteria for BMD interpretation classify patients as Normal (T-score at or above -1.0), Osteopenic (T-score between -1.0 and -2.5) or Osteoporotic (T-score at or below -2.5). LIMITATIONS AND MODIFICATION: None. FRACTURE RISK (FRAX SCORE): The ten year probability of (%): Major Osteoporotic Fracture: [18.4] Hip Fracture: [5.6] IMPRESSION: 1. Osteoporosis. 2. Baseline examination. 3. See below National Osteoporosis Foundation guidelines on when to potentially initiate pharmacologic therapy. Based on the National Osteoporosis Foundation Guidelines, pharmacologic treatment should be initiated in any of the following, unless clinical conditions suggest otherwise: * Any patient with prior fragility fracture of the hip or vertebrae. A spine fracture indicates 5X risk for subsequent spine fracture and 2X risk for subsequent hip fracture. * Osteoporosis (T-score <-2.5). * Postmenopausal women and men age 50 and older with low bone mass/osteopenia (T-score between -1.0 and -2.5) by DXA and 10-year major osteoporotic fracture greater than 20% or a 10-year probability of hip fracture greater than 3%. These fracture risks are supplied above in the FRAX score, if applicable. * Clinician judgement and/or patient preferences may indicate treatment for people with 10-year fracture probabilities above or below these levels. Dictated by: Dictated on workstation # [id number]
== END ==
LOC: RAD 10:46
PROVIDERS: ATTEND Family Medicine
DX: Z13.820 Encounter for screening for osteoporosis (principal); E55.9 Vitamin D deficiency, unspecified; M81.0 Age-related osteoporosis without current pathological fracture
CPT/HCPCS: 77080

== ENCOUNTER 2023-05-31 14:27 | Emergency (ER) | payer MEDICARE ==
[~2023-05-31] VITALS: Ht 175 cm; Wt 54.5 kg
[2023-05-31] MEDS ORDERED: FLUORESCEIN 1 MG OPHTHALMIC STRIPS ONE (14:39)
[2023-05-31] MEDS ORDERED: TETRACAINE 0.5% OPHTH SOLN 4 ML BTL (SINGLE DOSE ONLY) ONE (14:40)
--- NOTE | 2023-05-31 15:18 | Diagnostic Imaging Report ---
PROCEDURE: CT orbit without contrast. TECHNIQUE: Multiple contiguous axial images were obtained through the facial bones without the use of intravenous contrast. Auto Exposure Controls were utilized during the CT exam to meet ALARA standards for radiation dose reduction. INDICATION: 62-year-old male, mowing trauma, hit by a tree in right eye. Now unable to see out of right eye. CORRELATION STUDY: None. FINDINGS: Examination compromised by motion artifact including over the orbits. Given this, the orbits appear fairly symmetric in their configuration and overall appearance. Definitive foreign body is not visualized. No bharathi disruption of the globes. The retro-orbital structures appear generally symmetric and unremarkable. Orbital ferreira, including floor, are intact. Maxillary sinus ferreira intact with minimal mucosal thickening of the right maxillary sinus. There is leftward nasal septal deviation and prominent left-sided nasal spur. Likely previous surgery within the nasal cavity and sinuses. Ethmoid air cells generally clear. Patient is edentulous. Zygomatic arch pterygoid plates maintained. Partial visualized mandible, including temporal mandibular joints, unremarkable. IMPRESSION: Compromised imaging with motion artifact. Given this, no bharathi disruption of the globe or findings to suggest foreign body. Retro-orbital structures appear generally symmetric and unremarkable. No depressed orbital wall and/or floor fracture. If continued clinical concern for injury to the globe, MRI would be a more sensitive means for assessment. Dictated by: Dictated on workstation # [id number]
--- NOTE | 2023-05-31 15:23 | ED EENT ---
History of Present Illness General Chief Complaint: Eye Problems Stated Complaint: RIGHT EYE INJURY Nursing Triage Note: pt states he was mowing and something hit a tree and bounced and hit his right eye. states he now cannot see out of the eye. Source: patient Exam Limitations: no limitations History of Present Illness Date Seen by Provider: May 31, 2023 Time Seen by Provider: 14:33 Initial Comments 62-year-old male presents to the emergency department today after right eye injury while he was mowing the lawn. An object shot out from the mower off of a tree and hit him in his right eye. No other injuries. He states he saw immediate flash of bright light and then lost his vision in the right eye. Does not wear contacts or glasses. No history of ocular trauma. All other systems reviewed and negative except documented per HPI. Voice recognition software was used to help create this chart Allergies and Home Medications Allergies Coded Allergies: No Known Drug Allergies (Verified , 08/03/19) Patient Home Medication List Home Medication List Reviewed: Yes Alprazolam (Xanax) 0.25 Mg Tablet, 0.25 MG PO PRN, (Reported) Entered as Reported by: PLACIDO JENSEN on 02/07/21 1044 Azithromycin (Zithromax) 500 Mg Tablet, 500 MG PO PRN, (Reported) Entered as Reported by: COLLEEN CARRILLO on 11/01/18 1410 Budesonide/Formoterol Fumarate (Symbicort 160-4.5 Mcg Inhaler) 10.2 Gm Hfa.aer.ad, 2 PUFF IH PRN, (Reported) Entered as Reported by: PLACIDO JENSEN on 02/07/21 1044 Hydrocodone Bit/Acetaminophen (HYDROcodone/APAP 7.5/325 TAB) 1 Each Tablet, 1-2 EACH PO Q4H PRN for PAIN-MODERATE Prescribed by: GINNY LAN on 11/04/18 0832 Pantoprazole Sodium (Protonix) 40 Mg Tablet.dr, 40 MG PO DAILY Prescribed by: AFSHIN KHAN on 02/13/21 1145 Simethicone (Simethicone) 80 Mg Tab.chew, 160 MG PO TIDAC, (Reported) Entered as Reported by: COLLEEN CARRILLO on 08/02/19 1104 Tramadol HCl (Tramadol HCl) 50 Mg Tablet, 50 MG PO PRN, (Reported) Entered as Reported by: COLLEEN CARRILLO on 08/02/19 1104 Review of Systems Review of Systems Constitutional: see HPI Past Auotfrn-Wzcgsd-Duoodn Hx Patient Social History Tobacco Use?: Yes Tobacco type used: Cigarettes Smoking Status: Current Everyday Smoker Substance use?: No Alcohol Use?: No Immunizations Up To Date Tetanus Booster (TDap): Unknown Seasonal Allergies Seasonal Allergies: No Past Medical History Surgery/Hospitalization HX: cad, lyme disease, copd Surgeries: Yes (COLLAPSED LUNG X2/HERNIA SURGERY) Gallbladder Respiratory: Yes COPD Currently Using CPAP: No Currently Using BIPAP: No Cardiac: No Neurological: Yes (LYMES DISEASE) Sexually Transmitted Disease: No HIV/AIDS: Yes Genitourinary: No Gastrointestinal: Yes Gastroesophageal Reflux, Chronic Constipation, Chronic Diarrhea Musculoskeletal: Yes (LYMES DISEASE) Arthritis Endocrine: No HEENT: No Loss of Vision: Denies Hearing Impairment: Denies Cancer: No Psychosocial: Yes Depression Integumentary: No Blood Disorders: No Adverse Reaction/Blood Tranf: No (N/A) Family Medical History Colon cancer Visual Acuity : Eye Location: Right (Only very faint detection of movement/light) Physical Exam Vital Signs Vital Signs - First Documented 05/31/23 14:33 Temp 36.4 Pulse 67 Resp 18 B/P (MAP) 143/82 (102) Pulse Ox 97 Height, Weight, BMI Height: 5'9.00" Weight: 116lbs. 0.0oz. 52.149041en; 17.00 BMI Method: General Appearance: WD/WN, no apparent distress Eyes: right eye other (Extraocular movements are intact. 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 as tested, no motor/sensory deficits, alert, normal mood/affect, oriented x 3 Skin: normal color, warm/dry Progress/Results/Core Measures Results/Orders My Orders Orders - WINNIE,DALI L DO Fluorescein Strips ([id number]-[id number]) (05/31/23 14:39) Tetracaine 0.5% Ophth Deisi Sdv (Tetracai (05/31/23 14:40) Ct Orbit Wo (05/31/23 14:43) Medications Given in ED Current Medications Medications Dose Ordered Sig/Kimberly Route Start Time Stop Time Status Last Admin Dose Admin Tetracaine HCl 4 ml STK-MED ONCE .ROUTE 05/31/23 14:40 05/31/23 14:42 DC 05/31/23 15:07 4 ML Vital Signs/I&O 05/31/23 14:33 Temp 36.4 Pulse 67 Resp 18 B/P (MAP) 143/82 (102) Pulse Ox 97 Blood Pressure Mean: 102 Critical Care Note Critical Care Total Time (minutes) 60 Departure Communication (Admissions) Patient has obvious irregularity of his pupil and vision loss. CT scan has motion artifact but no gross abnormalities. Certainly no intracranial abnormalities. [address] Fisher at [facility] ophthalmology. He states he likely do not have the equipment available to take care of this patient. Recommends [facility]. I called at [phone]. They request CT images to be clouded and wait for the read. I called them back at 1515. Except the patient in transfer to the ER. We will go ahead and fly him as ground transport is not readily available and this is a vision threatening trauma, likely time sensitive to restore his vision. Helicopters about 20 minutes out. Impression Primary Impression: Traumatic injury of globe of right eye Additional Impression: Pupil irregular of right eye Disposition: XF T-[facility] Condition: Stable Departure-Patient Inst. Referrals: NO,LOCAL PHYSICIAN (PCP) Primary Care Physician DALI ZHOU DO May 31, 2023 15:23
[2023-05-31] MEDS ORDERED: fentaNYL INJECTION 100 MCG/2 ML VIAL IVP ONE (16:00)
[2023-05-31 16:17] VITALS: BP 132/92
== END 2023-05-31 16:18 | disposition short-term general hospital (02) ==
LOC: EDUNIT# 14:27 → ER 14:30
DX: S05.91XA Unspecified injury of right eye and orbit, initial encounter (principal); H21.561 Pupillary abnormality, right eye; F17.210 Nicotine dependence, cigarettes, uncomplicated; W20.8XXA Other cause of strike by thrown, projected or falling object, initial encounter; Y93.H2 Activity, gardening and landscaping
CPT/HCPCS: 70480

== ENCOUNTER → 2023-06-15 | Outpatient (CLI) | payer MEDICARE | LOC: CARD 10:39 | PROVIDERS: ATTEND Physician Assistant | DX: I11.9 Hypertensive heart disease without heart failure (principal); I25.10 Atherosclerotic heart disease of native coronary artery without angina pectoris | CPT/HCPCS: 93306 ==